=== PATIENT | female | born 1935 | race Caucasian/White ===

== ENCOUNTER → 2017-05-09 | Outpatient (CLI) | payer MEDICARE ==
[~2017-05-09] MED LIST: ARTHROTEC 75 751 ECT PO; ASPIRIN 81MG TA81 MG PO; AZELASTINE137 MCG/SP; BYSTOLIC5 MG PO; CAL-CITRATE200 MG PO; CENTRUM SILVER1 TAB PO; DIOVAN HCT 25 M1 TA1 PO; LEVOTHYROXIN0.075 M1 PO; LIPITOR40 MG PO; LORATADINE 10MG10 M1 PO; OMEPRAZOLE D/R20 MG PO; VALSARTAN AND H1 TA1 PO; VITAMIN D1000 IU PO; VITAMIN D35000 IU PO
--- NOTE | 2017-05-09 15:28 | RADIOLOGY REPORT PS360 ---
KNEE-4 OR 5 VIEWS-RT HISTORY: Right knee pain, valgus deformity CALGUS DEFORMITY RT KNEE ORDERING PHYSICIAN: Jose Rivas MD PATIENT AGE: 82 years COMPARISON: 09/27/2016 FINDINGS: Severe osteoarthritic changes are present involving the lateral compartment with mild valgus stimulation of the tibia. There is some cortical irregularity of the proximal tibia and distal femur at the joint. There is mild chondrocalcinosis of the medial compartment. Hypertrophic changes are present at the distal femur and patella. No acute fracture or dislocation. No lytic or blastic change. There is a small suprapatellar effusion. IMPRESSION: Overall no change in the severe osteoarthritic change of the lateral compartment with mild valgus angulation of the tibia. Small knee joint effusion
--- NOTE | 2017-05-09 16:50 | RADIOLOGY REPORT PS360 ---
[id number] VIEWS HISTORY: RT CHOULDER PAIN ORDERING PHYSICIAN: Jose Rivas MD PATIENT AGE: 82 years COMPARISON: None FINDINGS: There are moderate osteoarthritic changes of the glenohumeral joint with decrease in the joint space osteophyte formation and sclerosis. There are few subarticular cysts of the humeral head and glenoid. Mild osteoarthritic changes are present at the acromioclavicular joint. There is some calcification along the superior aspect of the humeral head consistent with calcific tendinitis. No subacromial stenosis. IMPRESSION: 1. 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 2. Calcific tendinitis of the rotator cuff. 3. Osteoarthritic change of the AC joint
== END ==
LOC: RAD 13:15
DX: M21.061 Valgus deformity, not elsewhere classified, right knee (principal)